=== PATIENT | female | born 1995 | race Caucasian/White ===

== ENCOUNTER → 2021-04-05 | Outpatient (CLI) | payer BC, SELFPAY ==
--- NOTE | 2021-04-05 | TONS_PTH ---
PATIENT: VIRIDIANA HERRERA LOC: [facility] #:[id number] AGE/SX: ROOM: RE04/05/[address]: Dr. Silverio Galindo MD : 1995 BED: DIS: 04/05/2021 SPEC #: [id number] RECD: 04/05/21 15:04 STATUS: KENNEDY SHEPPARD #: [id number] CASSIE: 04/05/21 00:[address]: Silverio Galindo DEPT: SURGICAL PATHOLOGY RECD BY: Leon Guerra ENTERED: 04/06/21 08:58 SP TYPE: TONSILS OTHR DR: No Primary Care Phys [facility] Tissues: Tonsil, NOS Procedures: Surgery Specimen Level III HEADER OPERATION: Tonsillectomy PRE-OP DIAGNOSIS: Chronic tonsillitis TISSUE SUBMITTED: Bilateral tonsils, pin on right MICROSCOPIC DIAGNOSIS Right and left tonsils, bilateral tonsillectomies: Benign lymphoid follicular hyperplasia. Organisms consistent with actinomyces. AM:rg 04/07/2021 MICROSCOPIC DESCRIPTION Slides are reviewed. GROSS DESCRIPTION Received is one container labeled with the patient's name and designated tonsils - pin on right are two tonsils that in aggregate weigh 27.3 gm. The right tonsil has a pin on it and measures 4.3 x 2.5 x 1.5 cm. The left tonsil measures 4.6 x 2.5 x 2 cm. Both tonsils are similar in appearance. The external surfaces are pink-parkinson, smooth, glistening and somewhat lobulated. Focally they are hemorrhagic, granular and bear cautery artifact. Serial cross sections through the tonsils reveal normal tonsillar architecture. Sections are submitted in two cassettes as follows: 1 - right tonsil, 2 - left tonsil. / AM:gaston 04/06/21 TC:5 CPT: 18036 x2
== END | disposition home or self-care (01) ==
LOC: LABSPEC 15:29
PROVIDERS: Referring Provider Otolaryngology; Visit Provider Otolaryngology
DX: J35.01 Chronic tonsillitis (principal)
CPT/HCPCS: 88304